=== PATIENT | female | born 1980 | race Caucasian/White ===

== ENCOUNTER 2016-07-21 01:19 | Emergency (ER) | payer OTHER ==
[~2016-07-21] VITALS: Ht 175.3 cm; Wt 92.3 kg
[~2016-07-21 01:19] MED LIST: AMOXICILLIN 50500 MG PO; AMOXICILLIN/CLA1 TA1 PO; FLEXERIL 1010 MG/TAB PO; NO HOME MEDICATIONS; NORCO 325 MG-51 TAB PO; PERCOCET 325 MG1 TA2 PO; ULTRAM 50MG TAB50 MG PO
[2016-07-21 01:23] VITALS: BP 148/80; PULSE 106; TEMP 97.2
== END 2016-07-21 02:22 | disposition home or self-care (01) ==
LOC: COL.ER 01:19
DX: S61.211A Laceration without foreign body of left index finger without damage to nail, initial encounter (principal); W26.0XXA Contact with knife, initial encounter

== ENCOUNTER 2021-04-04 05:25 | Emergency (ER) | payer SELFPAY ==
[~2021-04-04] VITALS: Ht 175.3 cm; Wt 85.9 kg
[2021-04-04 05:29] VITALS: TEMP 99.2
[2021-04-04] MEDS ORDERED: ZOFRAN ODT4 MG PO (06:05)
[2021-04-04] MEDS ORDERED: AMOXICILLIN 8751 TAB PO (06:05)
[2021-04-04 06:14] LABS: BASO % 0.3 % (0.0-2.0); EOS # 0.1 K/mm3 (0.0-0.7); EOS % 1.1 % (0-4.0); GRAN % 72.2 % (42.2-75.2); HEMATOCRIT 45.3 % (37.0-47.0); HEMOGLOBIN 15.6 g/dl (12.5-16.0); LYMPH # 1.9 K/mm3 (1.2-3.4); LYMPH % 19.3 % (20.0-51.0); MEAN CELL VOLUME 99 fl (80.0-100.0); MEAN CORPUSCULAR HEMOGLOBIN 34 pg (27.0-31.0); MEAN CORPUSCULAR HGB CONC 34 g/dl (33.0-37.0); MEAN PLATELET VOLUME 9.7 fl (7.4-10.4); MONO # 0.7 K/mm3 (0.1-0.6); MONO % 6.7 % (1.7-9.3); PLATELET COUNT 237 K/mm3 (130-400); RED BLOOD COUNT 4.56 M/mm3 (4.10-5.30); REDCELL DISTRIBUTION WIDTH-CV 13.4 % (11.5-14.5)
[2021-04-04 06:35] LABS: ALBUMIN 3.9 gm/dL (3.5-5.0); BILIRUBIN,TOTAL 0.8 mg/dL (0.2-1.2); CALCIUM 9.9 mg/dL (8.4-10.2); CREATININE, serum 0.84 mg/dL (0.57-1.11); POTASSIUM 3.5 mmol/L (3.5-4.5); TOTAL PROTEIN 6.5 gm/dL (6.2-8.1)
[2021-04-04 07:22] VITALS: BP 136/94; PULSE 88
== END 2021-04-04 07:22 | disposition home or self-care (01) ==
LOC: COL.ER 05:25
PROVIDERS: Personal Emergency Response Attendant
DX: J20.9 Acute bronchitis, unspecified (principal); F17.210 Nicotine dependence, cigarettes, uncomplicated; Z86.16 Personal history of COVID-19
CPT/HCPCS: J0456; J0696; J7030; J7050

== ENCOUNTER 2021-08-22 11:47 | Emergency (ER) | payer SELFPAY ==
[~2021-08-22] VITALS: Ht 175.3 cm; Wt 80.9 kg
[~2021-08-22 11:47] MED LIST changes: +AMOXICILLIN 8751 TAB PO; +ZOFRAN ODT4 MG PO
[2021-08-22 12:14] VITALS: TEMP 97.7
[2021-08-22 13:00] VITALS: BP 134/84; PULSE 77
== END 2021-08-22 13:00 | disposition home or self-care (01) ==
LOC: COL.ER 11:47
DX: S61.512A Laceration without foreign body of left wrist, initial encounter (principal); F17.200 Nicotine dependence, unspecified, uncomplicated; W25.XXXA Contact with sharp glass, initial encounter; Y93.01 Activity, walking, marching and hiking; Y92.009 Unspecified place in unspecified non-institutional (private) residence as the place of occurrence of the external cause

== ENCOUNTER 2023-05-29 13:45 | Emergency (ER) | payer SELFPAY ==
[~2023-05-29] VITALS: Ht 175.3 cm; Wt 63.6 kg
[~2023-05-29 13:45] MED LIST changes: +CRUTCHES MC
[2023-05-29 13:48] VITALS: BP 143/92
[2023-05-29] MEDS ORDERED: ZITHROMAX Z PA250 MG PO (14:33)
[2023-05-29 14:39] VITALS: PULSE 86; TEMP 98
== END 2023-05-29 14:38 | disposition home or self-care (01) ==
LOC: COL.ER 13:45
DX: J06.9 Acute upper respiratory infection, unspecified (principal); F17.210 Nicotine dependence, cigarettes, uncomplicated

== ENCOUNTER 2023-12-16 15:49 | Emergency (ER) | payer SELFPAY ==
[~2023-12-16] VITALS: Ht 175.3 cm; Wt 61.4 kg
[~2023-12-16 15:49] MED LIST changes: +ZITHROMAX Z PA250 MG PO
[2023-12-16 15:55] VITALS: TEMP 98.2
[2023-12-16] MEDS ORDERED: Cyclobenzaprine 10 MG TAB PO ONE (17:30)
[2023-12-16] MEDS ORDERED: Naproxen 250 MG TAB PO ONE (17:30)
[2023-12-16] MEDS ORDERED: Lidocaine 4% Topical Patch TP ONE (17:30)
[2023-12-16] MEDS ORDERED: Acetaminophen 500 MG TAB PO ONE (17:30)
[2023-12-16] MEDS ORDERED: LIDODERM 5% PATC1 EA TP (18:50)
[2023-12-16] MEDS ORDERED: FLEXERIL 1010 MG/TAB PO (18:50)
[2023-12-16] MEDS ORDERED: NAPROSYN500 MG PO (18:50)
[2023-12-16 19:06] VITALS: BP 133/88; PULSE 80
== END 2023-12-16 19:06 | disposition home or self-care (01) ==
LOC: COL.ER 15:49
DX: M54.50 Low back pain, unspecified (principal); F17.200 Nicotine dependence, unspecified, uncomplicated